=== PATIENT | female | born 1950 | race Caucasian/White ===

== ENCOUNTER 2023-10-12 08:59 | Observation (INO) | payer OTHER, MEDICAID ==
[2023-10-05 12:41] LABS: BASOPHILS % (AUTO) 0.5 % (0-1); EOSINOPHILS # (AUTO) 0.4 X10'3 (0-0.9); EOSINOPHILS % (AUTO) 6.1 % (0-6); LYMPHOCYTES # (AUTO) 1.9 X10'3 (1.1-4.8); LYMPHOCYTES % (AUTO) 31.9 % (21-51); MEAN CORPUSCULAR HEMOGLOBIN 30.5 PG (27.0-31.0); MEAN CORPUSCULAR HGB CONC 33.5 g/dL (33.0-36.5); MEAN PLATELET VOLUME 10.8 FL (7.4-10.4); MONOCYTES # (AUTO) 0.5 X10'3 (0-0.9); MONOCYTES % (AUTO) 7.7 % (2-12); NEUTROPHILS # (AUTO) 3.2 X10'3 (1.8-7.7); NEUTROPHILS % (AUTO) 53.8 % (42-75); PRE OP HEMATOCRIT 36.4 % (35.0-45.0); PRE OP HEMOGLOBIN 12.2 g/dL (12.0-16.0); PRE OP WHITE BLOOD COUNT 5.9 10'3 (4.8-10.8)
[2023-10-05 13:07] LABS: PRE OP PLATELET COUNT 92 X10'3 (140-440)
[2023-10-05 13:09] LABS: ALBUMIN 3.6 G/DL (3.4-5.0); ALBUMIN/GLOBULIN RATIO 0.9 (1.1-1.5); ALKALINE PHOSPHATASE 111 IU/L (46-116); BLOOD UREA NITROGEN 12 MG/DL (7-18); BUN/CREATININE RATIO 10.6 (10.0-20.0); CALCIUM 9.6 MG/DL (8.5-10.1); CHLORIDE 98 MMOL/L (99-107); CREATININE 1.13 MG/DL (0.40-0.90); PRE OP ALT 29 U/L (30-65); PRE OP ANION GAP 11 (8-16); PRE OP AST 29 U/L (10-37); PRE OP BILIRUB, TOTAL 1.1 MG/DL (0.0-1.0); PRE OP GLUCOSE 192 MG/DL (70-104); PRE OP POTASSIUM 4.1 MMOL/L (3.4-5.1); PRE OP SODIUM 133 MMOL/L (135-145); TOTAL CARBON DIOXIDE 24.4 MMOL/L (24-32); TOTAL PROTEIN 7.8 G/DL (6.4-8.2); eGFR 47 ML/MIN
[2023-10-05 13:52] LABS: HEMOGLOBIN A1C 9.1 % (4.5-6.2)
[2023-10-12] VITALS (21 sets, daily range): BP systolic 110–152; BP diastolic 55–79; PULSE 74–94; RESP 10–18; TEMP 97.8–98.7; O2SAT 90–98
[~2023-10-12] VITALS: Ht 167.6 cm; Wt 104.6 kg
[~2023-10-12 08:59] MED LIST: ATEN-27 PO; ATOR40TA71 PO; CITA20TA17 PO; EMPA10TA PO; IRBE150T51 PO; LANTUS SUBCUT; LINA5TAB4 PO; METF-900 PO; ZOLP5TAB8 PO
[2023-10-12] MEDS ORDERED: methylene blue (5mg/ml) 50mg/10ml ampul IV ONE (09:39)
[2023-10-12] MEDS ORDERED: BUPIVAcaine/PF 2.5mg/ml (0.25%) 10ml vial ONE (09:40)
[2023-10-12] MEDS ORDERED: midazolam 1 mg/ML 2ml injection ONE (10:24)
[2023-10-12] MEDS ORDERED: fentaNYL /PF 50mcg/ml 5ml ampule ONE (10:24)
[2023-10-12] MEDS: DOCUMENT DATE & TIME OF BETA-BLOCKER PO ONE (10:39)
[2023-10-12] MEDS: famotidine 20mg tablet PO ONE (10:39)
[2023-10-12] MEDS: ringers solution, lacted 1,000 ML IV SCH ×3 (10:39→18:00)
[2023-10-12] MEDS: cefazolin 2gm/D5W 100mL 100 ML IV ONE (10:40)
[2023-10-12] MEDS ORDERED: sevoflurane 250ml liquid IH ONE (11:00)
[2023-10-12 11:11] LABS: INR 1.1 INR; PRE OP PARTIAL THROMB. TIME 28 SECONDS (22-32); PROTHROMBIN TIME 11.7 SECONDS (9.0-12.0)
[2023-10-12] MEDS ORDERED: ondansetron/PF 4mg/2ml inj ONE (11:29)
[2023-10-12] MEDS ORDERED: rocuronium 10mg/ml inj IV ONE (11:29)
[2023-10-12] MEDS ORDERED: acetaminophen 1,000mg/100ml IV 100 ML IV ONE (11:29)
[2023-10-12] MEDS ORDERED: propofol inj 20 ML IV ONE (11:29)
[2023-10-12] MEDS ORDERED: LIDOcaine 2% (20mg/ml) 5ml vial ONE (11:29)
[2023-10-12] MEDS ORDERED: labetalol 20mg/4ml (5mg/ml) syringe IV ONE ×2 (11:51→12:10)
[2023-10-12] MEDS ORDERED: labetalol 20mg/4ml (5mg/ml) syringe IV PRN (12:00)
[2023-10-12] MEDS ORDERED: morphine 4 MG/ML inj SYRINge IV PRN (12:00)
[2023-10-12] MEDS ORDERED: hydrALAZINE 20mg/ml inj. IV PRN (12:00)
[2023-10-12] MEDS ORDERED: ondansetron/PF 4mg/2ml inj IV PRN (12:00)
[2023-10-12] MEDS ORDERED: morphine 2 MG/ML inj. syringe IV PRN ×2 (12:00→15:40)
[2023-10-12] MEDS ORDERED: fentaNYL/PF 50MCG/1 ML 2ML syringe IV PRN ×2 (12:00)
[2023-10-12] MEDS ORDERED: meperidine/PF 50mg/ml syringe ONE (14:24)
[2023-10-12] MEDS ORDERED: acetaminophen w/codeine (30MG) #3 tablet PO PRN (15:40)
[2023-10-12] MEDS ORDERED: HYDROcodone/acetaminophen 5mg/325mg tablet PO PRN (15:40)
[2023-10-12] MEDS ORDERED: insulin Lispro (HumaLOG) vial - multi-dose SQ SCH (16:10)
[2023-10-12] MEDS: MESSAGE TO PHARMACY PO ONE (16:10)
[2023-10-12] MEDS: ceFAZolin 1GM/D5W- ADD-VANTAGE 50 ML IV SCH (17:58)
[2023-10-12] MEDS ORDERED: zolpidem 5mg tablet PO PRN (19:00)
[2023-10-12] MEDS: METFORMIN HCL PO SCH (20:00)
[2023-10-12] MEDS: INSULIN LISPRO 100 UNIT/ML INSULN.PEN MULTI-DOSE SQ SCH (20:51)
[2023-10-12] MEDS: atorvastatin 20mg tablet PO SCH (21:01)
[2023-10-12] MEDS: losartan 50mg tablet PO SCH (21:01)
[2023-10-12] MEDS: citalopram 20mg tablet PO SCH (21:01)
[2023-10-12] MEDS: atenolol 25mg tablet PO SCH (21:01)
[2023-10-12] MEDS: EMPAGLIFLOZIN 10 MG TABLET PO SCH (21:02)
[2023-10-12] MEDS: linagliptin 5mg tablet PO SCH (21:02)
[2023-10-12] MEDS: insulin glargine (Lantus) pen - multi-dose SQ SCH (22:59)
[2023-10-13] VITALS: BP 108/58; PULSE 84; RESP 16; O2SAT 95
[2023-10-13 02:00] VITALS: BP 116/57; PULSE 78; RESP 16; O2SAT 93
[2023-10-13 04:00] VITALS: BP 116/59; PULSE 73; RESP 18; O2SAT 95
[2023-10-13 06:53] VITALS: BP 123/58; PULSE 70; RESP 18; TEMP 97.8; O2SAT 93
[2023-10-13 07:00] VITALS: RESP 18; O2SAT 93
[2023-10-13 07:59] LABS: BASOPHILS % (AUTO) 0.4 % (0-1); EOSINOPHILS % (AUTO) 0.6 % (0-6); HEMATOCRIT 29.4 % (35.0-45.0); HEMOGLOBIN 9.9 g/dl (12.0-16.0); LYMPHOCYTES # (AUTO) 0.7 X10'3 (1.1-4.8); LYMPHOCYTES % (AUTO) 10.5 % (21-51); MEAN CORPUSCULAR HEMOGLOBIN 30.5 PG (27.0-31.0); MEAN CORPUSCULAR HGB CONC 33.5 g/dL (33.0-36.5); MEAN CORPUSCULAR VOLUME 90.9 FL (78-98); MEAN PLATELET VOLUME 11.2 FL (7.4-10.4); MONOCYTES # (AUTO) 0.5 X10'3 (0-0.9); MONOCYTES % (AUTO) 7.8 % (2-12); NEUTROPHILS # (AUTO) 5.6 X10'3 (1.8-7.7); NEUTROPHILS % (AUTO) 80.7 % (42-75); PLATELET COUNT 81 X10'3 (140-440); RED BLOOD COUNT 3.24 X10'6 (4.20-5.60); RED CELL DISTRIBUTION WIDTH 15.8 % (11.5-14.5); WHITE BLOOD COUNT 6.9 X10'3 (4.5-11.0)
[2023-10-13 10:35] VITALS: BP 118/68; PULSE 86; RESP 18; TEMP 97.6; O2SAT 98
== END 2023-10-13 13:15 | disposition home or self-care (01) ==
LOC: PAS 08:59 → PAS IN 15:45 → ORTHO 4S 16:28
PROVIDERS: ADMIT Surgery; ATTEND Surgery
DX: C50.411 Malignant neoplasm of upper-outer quadrant of right female breast (principal); C50.412 Malignant neoplasm of upper-outer quadrant of left female breast; C50.812 Malignant neoplasm of overlapping sites of left female breast; C50.811 Malignant neoplasm of overlapping sites of right female breast; R56.9 Unspecified convulsions; Z17.0 Estrogen receptor positive status [ER+]; Z86.2 Personal history of diseases of the blood and blood-forming organs and certain disorders involving the immune mechanism
CPT/HCPCS: 19303; 36415; 38525; 38792; 80053; 82948; 83036; 85025; 85610; 85730; 87081; 93005; 96365; 96366; A6258; G0378; J0131; J0690; J1100; J1815; J2175; J2250; J2405; J2704; J3010; J3490; J7120; Q9968; A4215; A4615; A4618; A6213; A6253; A6449; A7000; C9250

== ENCOUNTER 2023-10-16 17:05 | Emergency (ER) | payer OTHER, MEDICAID ==
[~2023-10-16] VITALS: Ht 167.6 cm; Wt 96.0 kg
[2023-10-16 17:18] VITALS: BP 157/77; PULSE 80; TEMP 98; O2SAT 95
[2023-10-16 17:37] VITALS: RESP 18
[2023-10-16] MEDS: silver nitrate applicator stick TP ONE (17:53)
== END 2023-10-16 18:10 | disposition home or self-care (01) ==
LOC: ER 17:06
DX: R04.0 Epistaxis (principal); I10 Essential (primary) hypertension; E11.9 Type 2 diabetes mellitus without complications; F32.A Depression, unspecified; Z90.49 Acquired absence of other specified parts of digestive tract; Z88.8 Allergy status to other drugs, medicaments and biological substances; Z79.899 Other long term (current) drug therapy
CPT/HCPCS: 30901; 99284

== ENCOUNTER 2024-02-09 11:28 | Emergency (ER) | payer MEDICARE, MEDICAID ==
[~2024-02-09] VITALS: Ht 167.6 cm; Wt 103.2 kg
[2024-02-09 15:35] LABS: ALBUMIN 3.8 G/DL (3.4-5.0); ANION GAP 12 (8-16); BLOOD UREA NITROGEN 12 MG/DL (7-18); BUN/CREATININE RATIO 9.4 (10.0-20.0); CHLORIDE 98 MMOL/L (99-107); CREATININE 1.27 MG/DL (0.40-0.90); GLUCOSE 214 MG/DL (70-104); LIPASE 48 U/L (16-77); POTASSIUM 3.8 MMOL/L (3.5-5.1); SODIUM 136 MMOL/L (135-145); TOTAL CARBON DIOXIDE 25.9 MMOL/L (24-32); eCRCL 37 ML/MIN; eGFR 41 ML/MIN
[2024-02-09 15:40] LABS: BASOPHILS % (AUTO) 0.8 % (0-1); EOSINOPHILS # (AUTO) 0.2 X10'3 (0-0.9); EOSINOPHILS % (AUTO) 2.7 % (0-6); HEMATOCRIT 36.3 % (35.0-45.0); HEMOGLOBIN 11.8 g/dl (12.0-16.0); LYMPHOCYTES # (AUTO) 0.5 X10'3 (1.1-4.8); LYMPHOCYTES % (AUTO) 8.7 % (21-51); MEAN CORPUSCULAR HEMOGLOBIN 28.3 PG (27.0-31.0); MEAN CORPUSCULAR HGB CONC 32.5 g/dL (33.0-36.5); MEAN CORPUSCULAR VOLUME 86.9 FL (78-98); MEAN PLATELET VOLUME 10.5 FL (7.4-10.4); MONOCYTES # (AUTO) 0.4 X10'3 (0-0.9); MONOCYTES % (AUTO) 7.5 % (2-12); NEUTROPHILS # (AUTO) 4.6 X10'3 (1.8-7.7); NEUTROPHILS % (AUTO) 80.3 % (42-75); PLATELET COUNT 104 X10'3 (140-440); RED BLOOD COUNT 4.18 X10'6 (4.20-5.60); RED CELL DISTRIBUTION WIDTH 18.8 % (11.5-14.5); WHITE BLOOD COUNT 5.8 X10'3 (4.5-11.0)
[2024-02-09] MEDS ORDERED: iohexol 300mg/ml 100ml inj. ONE (15:57)
[2024-02-09 15:59] LABS: ANISOCYTOSIS 2+; ELLIPTOCYTES FEW; PLATELET ESTIMATE DECREASED; TEAR DROP CELLS FEW
[2024-02-09] MEDS: CefTRIAXone 2gm/D5W 50ml BAG 50 ML IV ONE (17:48)
[2024-02-09 18:01] LABS: BILIRUBIN,URINE NEGATIVE (Neg); CLARITY,URINE CLOUDY (Clear); COLOR,URINE YELLOW (Yellow); GLUCOSE, URINE >=1000 mg/dl (Neg); KETONES,URINE NEGATIVE (Neg); LEUKOCYTE ESTERASE ,URINE LARGE (Neg); NITRITES, URINE NEGATIVE (Neg); OCCULT BLOOD,URINE MODERATE (Neg); PROTEIN,URINE 30 mg/dl (Neg); UROBILINOGEN,URINE 0.2 E.U/dL (0.2-1.0)
[2024-02-09 18:03] LABS: UA COLLECTION TYPE FOLEY CATH
[2024-02-09 18:10] LABS: RBC,URINE 50-100 /HPF (0-2); WBC,URINE TNTC /HPF (0-4)
[2024-02-09 18:11] LABS: BACTERIA,URINE 2+ /HPF (Neg); MUCUS STRANDS FEW /LPF (Neg); SQUAMOUS EPITHELIAL CELL,UR FEW /LPF (FEW); WBC CLUMPS,URINE MANY /HPF (NEGATIVE); YEAST FEW /HPF (NEGATIVE)
[2024-02-09] MEDS ORDERED: CEPH-585 PO (18:32)
[2024-02-09 18:57] VITALS: BP 158/78; PULSE 89; RESP 16; TEMP 98; O2SAT 97
== END 2024-02-09 18:58 | disposition home or self-care (01) ==
LOC: ER 11:29
DX: R33.9 Retention of urine, unspecified (principal); N39.0 Urinary tract infection, site not specified; I10 Essential (primary) hypertension; E11.9 Type 2 diabetes mellitus without complications; F32.A Depression, unspecified; Z88.7 Allergy status to serum and vaccine; Z79.899 Other long term (current) drug therapy; Z79.2 Long term (current) use of antibiotics; Z79.4 Long term (current) use of insulin; Z79.84 Long term (current) use of oral hypoglycemic drugs; Z90.710 Acquired absence of both cervix and uterus
CPT/HCPCS: 36415; 51702; 74177; 80048; 81001; 83690; 85008; 85025; 87088; 96365; 99285; A4314; A4358; J0696; Q9967; A5200